=== PATIENT | male | born 1990 | race Two or more races ===

== ENCOUNTER 2020-08-01 13:30 | Emergency (ER) | payer OTHER ==
[2020-08-01 13:47] VITALS: BP 133/58
--- NOTE | 2020-08-01 13:56 | ED Physician Documentation ---
PD HPI WOUND RECHECK - Stated complaint Stated Complaint: LUMP & PX IN CHEST - Chief complaint Chief Complaint: Wound - Histroy obtained from History obtained from: Patient - Additional information Additional information: Previously gentleman has pain to left breast for for 2 months and at times feels a lump there. It is worse with left arm motion. Denies trouble breathing, cough, pedal edema or calf pain. He has no health issues. He is specifically worried about cancer because of the family history of same. Review of Systems Constitutional: denies: Fever, Chills Eyes: denies: Loss of vision, Decreased vision Ears: denies: Loss of hearing, Ear pain Nose: denies: Rhinorrhea / runny nose, Congestion Throat: denies: Dental pain / toothache, Sore throat Cardiac: denies: Chest pain / pressure, Palpitations Respiratory: denies: Dyspnea, Cough PD PAST MEDICAL HISTORY - Past Medical History Past Medical History: No - Present Medications Home Medications: Ambulatory Orders Medication Instructions Recorded Confirmed No Known Home Medications 08/01/20 08/01/20 - Allergies Allergies/Adverse Reactions: Allergies Allergy/AdvReac Type Severity Reaction Status Date / Time No Known Drug Allergies Allergy Verified 08/01/20 13:47 - Social History Does the pt smoke?: No Smoking Status: Never smoker PD ED PE NORMAL - Vitals Vital signs reviewed: Yes - General General: Alert and oriented X 3, No acute distress - Neck Neck: Supple, no meningeal sign, No bony TTP - Cardiac Cardiac: RRR, No murmur, Other (There is some mild tenderness of the inferior pectoral muscles on the left. There is no palpable mass. No rib tenderness. No sternal tenderness.) - Respiratory Respiratory: No respiratory distress, Clear bilaterally - Abdomen Abdomen: Soft, Non tender - Back Back: No CVA TTP, No spinal TTP - Derm Derm: Normal color, Warm and dry - Extremities Extremities: No edema, No calf tenderness / cord - Neuro Neuro: Alert and oriented X 3, No motor deficit, No sensory deficit, Normal speech Results - Vitals Vitals: Vital Signs - 24 hr 08/01/20 13:38 Temperature 36.6 C Heart Rate 75 Respiratory 17 Rate Blood Pressure 133/58 H O2 Saturation 100 Oxygen O2 Source Room air - EKG (time done) 1417 Rate: Rate (enter#) (61) Rhythm: NSR Terrell: Normal Intervals: Normal NE QRS: Normal Ischemia: ST elevation c/w repol Computer interpretation: Agree with computer - Rads (name of study) 2v chest Radiology: EMP read contemporaneously (NAD) PD MEDICAL DECISION MAKING - ED course ED course: 30-year-old with what seems like muscular chest pain, work-up negative. PERC negative. Conservative care and outpatient follow-up was advised. Departure - Departure Disposition: Home, Self Care Clinical Impression: Muscular chest pain Condition: Good Record reviewed to determine appropriate education?: Yes Instructions: ED Strain Chest Wall Print Language: Lithuanian Comments: La radiografa de josé trax y el electrocardiograma son normales. No hay evidencia de enfermedad cardaca o cncer. Puede camila ibuprofeno, que est disponible sin receta para el dolor. [place] y estiramiento suave tambin. [place] se coment, el dolor probablemente sea muscular. Llame a josé mdico para programar kerwin breanne de seguimiento, programe la prxima breanne disponible. Mientras tanto, regrese en cualquier momento si empeora o si aparecen nuevos sntomas. Discharge Date/Time: 08/01/20 14:40
--- NOTE | 2020-08-01 14:33 | XRAY Report ---
PROCEDURE: Chest 2 View X-Ray INDICATIONS: chest pain TECHNIQUE: 2 view(s) of the chest. COMPARISON: None. FINDINGS: Surgical changes and devices: None. Lungs and pleura: No pleural effusions or pneumothorax. Lungs are clear. Mediastinum: Mediastinal contours are normal. Heart size is normal. Bones and chest wall: No suspicious bony abnormalities. Soft tissues appear unremarkable. IMPRESSION: No acute cardiopulmonary disease process. Reviewed by: Rita Casiano MD, PhD on 08/01/2020 2:31 PM PST Approved by: Rita Casiano MD, PhD on 08/01/2020 2:31 PM PST Station ID: [id number]
== END 2020-08-01 14:40 | disposition home or self-care (01) ==
LOC: ED 13:30
DX: R07.89 Other chest pain (principal)
CPT/HCPCS: 93005; 99282; 99283